=== PATIENT | female | born 1945 | race Caucasian/White ===

== ENCOUNTER 2017-11-18 11:18 | Outpatient (CLI) | payer MEDICARE ==
--- NOTE | 2017-11-18 12:16 | RAD ---
PA AND LATERAL CHEST: HISTORY: Dyspnea. FINDINGS: The lung wagoner appear clear. No infiltrate. The heart and mediastinum are unremarkable. IMPRESSION: No evidence of acute process. POS: [facility]
== END 2017-11-18 11:19 | disposition home or self-care (01) ==
LOC: BICRAD 11:18
PROVIDERS: ATTEND Internal Medicine
DX: R06.00 Dyspnea, unspecified (principal); R53.83 Other fatigue
CPT/HCPCS: 71046

== ENCOUNTER 2017-11-18 12:09 | Outpatient (CLI) | payer MEDICARE | END 2017-11-18 12:10 | disposition home or self-care (01) | LOC: BICMAMMO 12:09 | PROVIDERS: ATTEND Internal Medicine | DX: Z12.31 Encounter for screening mammogram for malignant neoplasm of breast (principal); R92.1 Mammographic calcification found on diagnostic imaging of breast; Z80.3 Family history of malignant neoplasm of breast; Z85.43 Personal history of malignant neoplasm of ovary | CPT/HCPCS: 77063; 77067 ==

== ENCOUNTER 2018-11-23 09:03 | Outpatient (CLI) | payer MEDICARE ==
--- NOTE | 2018-11-23 09:42 | MMO ---
Bilateral MAMMO Bilat Screen [facility]. CLINICAL HISTORY: Patient is 73 years old and is seen for screening. The patient has the following family history of breast cancer: sister, at age 61. The patient has a history of Skin cancer at age 70. VIEWS: The views performed were: bilateral craniocaudal with tomosynthesis and bilateral mediolateral oblique with tomosynthesis. FILMS COMPARED: The present examination has been compared to prior imaging studies performed at [facility] on 08/01/2014, 08/13/2015, 09/16/2016 and 11/18/2017. This study has been interpreted with the assistance of computer-aided detection. MAMMOGRAM FINDINGS: There are scattered fibroglandular densities. There are stable benign appearing calcifications seen in both breasts. There are no suspicious masses, suspicious calcifications, or new areas of architectural distortion. IMPRESSION: THERE IS NO MAMMOGRAPHIC EVIDENCE OF MALIGNANCY. A ROUTINE FOLLOW-UP MAMMOGRAM IN 1 YEAR IS RECOMMENDED. THE RESULTS OF THIS EXAM WERE SENT TO THE PATIENT. ACR BI-RADS Category 2 - Benign finding MAMMOGRAPHY NOTE: 1. A negative mammogram report should not delay a biopsy if a dominant of clinically suspicious mass is present. 2. Approximately 10% to 15% of breast cancers are not detected by mammography. 3. Adenosis and dense breasts may obscure an underlying neoplasm. Reported by: REJI POPE MD Electonically Signed: [id number]
== END 2018-11-23 09:04 | disposition home or self-care (01) ==
LOC: BICMAMMO 09:03
PROVIDERS: ATTEND Internal Medicine
DX: Z12.31 Encounter for screening mammogram for malignant neoplasm of breast (principal); Z85.828 Personal history of other malignant neoplasm of skin; Z80.3 Family history of malignant neoplasm of breast
CPT/HCPCS: 77063; 77067

== ENCOUNTER 2019-12-28 10:11 | Outpatient (CLI) | payer MEDICARE ==
--- NOTE | 2019-12-28 10:43 | MMO ---
Bilateral MAMMO Bilat Screen [facility]. CLINICAL HISTORY: Patient is 74 years old and is seen for screening. The patient has the following family history of breast cancer: sister, at age 61. The patient has a history of Skin cancer at age 70. VIEWS: The views performed were: bilateral craniocaudal with tomosynthesis and bilateral mediolateral oblique with tomosynthesis. FILMS COMPARED: The present examination has been compared to prior imaging studies performed at [facility] on 08/13/2015, 09/16/2016, 11/18/2017 and 11/23/2018. This study has been interpreted with the assistance of computer-aided detection. MAMMOGRAM FINDINGS: There are scattered fibroglandular densities. There are benign appearing calcifications seen in both breasts. Nodularity is stable. There are no suspicious masses, suspicious calcifications, or new areas of architectural distortion. IMPRESSION: THERE IS NO MAMMOGRAPHIC EVIDENCE OF MALIGNANCY. A ROUTINE FOLLOW-UP MAMMOGRAM IN 1 YEAR IS RECOMMENDED. THE RESULTS OF THIS EXAM WERE SENT TO THE PATIENT. ACR BI-RADS Category 2 - Benign finding MAMMOGRAPHY NOTE: 1. A negative mammogram report should not delay a biopsy if a dominant of clinically suspicious mass is present. 2. Approximately 10% to 15% of breast cancers are not detected by mammography. 3. Adenosis and dense breasts may obscure an underlying neoplasm. Reported by: HERACLIO HEARD MD Electonically Signed: [id number]
== END 2019-12-28 10:12 | disposition home or self-care (01) ==
LOC: BICMAMMO 10:11
PROVIDERS: ATTEND Internal Medicine
DX: Z12.31 Encounter for screening mammogram for malignant neoplasm of breast (principal); Z80.3 Family history of malignant neoplasm of breast; Z85.828 Personal history of other malignant neoplasm of skin
CPT/HCPCS: 77063; 77067

== ENCOUNTER 2021-12-25 08:56 | Outpatient (CLI) | payer MEDICARE | END 2021-12-25 08:57 | disposition home or self-care (01) | LOC: BICMAMMO 08:56 | PROVIDERS: ATTEND Internal Medicine | DX: Z12.31 Encounter for screening mammogram for malignant neoplasm of breast (principal); N63.24 Unspecified lump in the left breast, lower inner quadrant; Z85.828 Personal history of other malignant neoplasm of skin; Z80.3 Family history of malignant neoplasm of breast | CPT/HCPCS: 77063; 77067 ==

== ENCOUNTER 2022-01-08 14:09 | Outpatient (CLI) | payer MEDICARE | END 2022-01-08 14:10 | disposition home or self-care (01) | LOC: BICULT 14:09 | PROVIDERS: ATTEND Internal Medicine | DX: Z12.31 Encounter for screening mammogram for malignant neoplasm of breast (principal); R92.8 Other abnormal and inconclusive findings on diagnostic imaging of breast ==

== ENCOUNTER → 2022-01-12 | Day surgery (SDC) | payer MEDICARE | END | disposition home or self-care (01) | LOC: BICULT 12:34 | PROVIDERS: ATTEND Internal Medicine | PROC: 0H9U3ZX Drainage of Left Breast, Percutaneous Approach, Diagnostic (ICD-10-PCS; principal; 2022-01-12) | DX: C50.312 Malignant neoplasm of lower-inner quadrant of left female breast (principal); Z17.0 Estrogen receptor positive status [ER+] | CPT/HCPCS: 19083; 88305; 88342; 88360 ==

== ENCOUNTER 2022-02-12 13:53 | Outpatient (CLI) | payer MEDICARE ==
[2022-02-12 15:36] LABS: #Eosinphils 0.2 10x3/uL (0.0-0.5); #Monocytes 0.9 10x3/uL (0.0-1.1); #Neutrophils 4.8 10x3/uL (1.5-8.4); %Basophils 0.2 % (0.0-2.0); %Lymphocytes 34.7 % (18.0-47.0); %Monocytes 9.6 % (0.0-10.0); %Neutrophils 53.2 % (40.0-75.0); Hemoglobin 13.2 g/dL (12.0-15.5); Mean Corpuscular HGB CONC 33.7 g/dL (32.0-36.0); Mean Corpuscular Hemoglobin 31.1 pg (27.0-33.0); Mean Corpuscular Volume 92.2 fl (81.6-98.3); Platelet Count 211 10x3/uL (150-450); RBC Distribution Width 13.5 % (11.5-14.5); Red Blood Cell (RBC) Count 4.25 10x6/uL (3.90-5.03)
[2022-02-12 16:00] LABS: Anion Gap 16 mmol/L (10-20); BUN (Urea Nitrogen) 23 mg/dL (9.8-20.1); Calc. Creatinine Clearance 0 mL/min (70-130); Calcium 9.8 mg/dL (7.8-10.44); Carbon Dioxide 26 mmol/L (23-31); Chloride 100 mmol/L (98-107); Estimated GFR 76; Glucose 97 mg/dL (83-110); Potassium 4.4 mmol/L (3.5-5.1); Sodium 138 mmol/L (136-145)
== END 2022-02-12 13:54 | disposition home or self-care (01) ==
LOC: LABBT 13:53
PROVIDERS: ATTEND Specialist
DX: Z01.818 Encounter for other preprocedural examination (principal); C50.912 Malignant neoplasm of unspecified site of left female breast
CPT/HCPCS: 80048; 85025; 93005; 93010

== ENCOUNTER 2022-02-16 07:52 | Day surgery (SDC) | payer MEDICARE ==
[2022-02-15 13:10] VITALS: BMI 38.6
[2022-02-16] MEDS ORDERED: Acetaminophen 500 MG TAB ONE (09:50)
[2022-02-16] MEDS ORDERED: Ketorolac Tromethamine 30 MG/ML VIAL ONE (09:51)
[2022-02-16] MEDS ORDERED: Fentanyl 250 MCG/5 ML VIAL ONE (11:37)
[2022-02-16] MEDS ORDERED: Isosulfan Blue 50 MG/5 ML VIAL ONE (11:45)
[2022-02-16] MEDS ORDERED: Lidocaine 2% PF 5 ML VIAL ONE (11:45)
[2022-02-16] MEDS ORDERED: Bupivacaine/Epinephrine 0.25% 30 ML VIAL ONE (11:45)
[2022-02-16] MEDS ORDERED: Sodium Chloride 0.9% 100 ML ONE (11:54)
[2022-02-16] MEDS ORDERED: CEFAZOLIN 2 GM VIAL ONE (11:54)
[2022-02-16] MEDS ORDERED: PROPOFOL 200 MG/20 ML VIAL ONE (12:11)
[2022-02-16] MEDS ORDERED: PHENYLEPHRINE-NS 100 MCG/ML 10 ML SYRINGE ONE (12:11)
[2022-02-16] MEDS ORDERED: ePHEDrine 50 MG/ML VIAL ONE (12:11)
[2022-02-16] MEDS ORDERED: Ondansetron PF 4 MG/2 ML Vial ONE (12:11)
[2022-02-16] MEDS ORDERED: Glycopyrrolate 0.2 MG/ML 5 ML SYRINGE ONE (12:11)
[2022-02-16] MEDS ORDERED: Lidocaine 1% PF 5 ML VIAL ONE (12:11)
== END 2022-02-16 16:33 | disposition home or self-care (01) ==
LOC: NM 07:52
PROVIDERS: ATTEND Specialist
PROC: 0HBU0ZZ Excision of Left Breast, Open Approach (ICD-10-PCS; principal; 2022-02-16)
PROC: 07B60ZX Excision of Left Axillary Lymphatic, Open Approach, Diagnostic (ICD-10-PCS; 2022-02-16)
DX: C50.312 Malignant neoplasm of lower-inner quadrant of left female breast (principal); N60.82 Other benign mammary dysplasias of left breast; N60.12 Diffuse cystic mastopathy of left breast; D24.2 Benign neoplasm of left breast; I10 Essential (primary) hypertension; L40.9 Psoriasis, unspecified; E66.9 Obesity, unspecified; Z17.0 Estrogen receptor positive status [ER+]; Z68.38 Body mass index [BMI] 38.0-38.9, adult; Z79.899 Other long term (current) drug therapy; Z88.0 Allergy status to penicillin; Z88.2 Allergy status to sulfonamides; Z91.018 Allergy to other foods
CPT/HCPCS: 19301; 38525; 38900; 76098; 78195; A9541; C1713; Q9968; 88307; 88342; J1885; J2001; J2405; J2704; J3010; J3490

== ENCOUNTER 2022-03-05 09:33 | Outpatient (CLI) | payer MEDICARE | END 2022-03-05 09:34 | disposition home or self-care (01) | LOC: BICMAMMO 09:33 | PROVIDERS: ATTEND Internal Medicine | DX: Z13.820 Encounter for screening for osteoporosis (principal); C50.412 Malignant neoplasm of upper-outer quadrant of left female breast; M85.852 Other specified disorders of bone density and structure, left thigh; M85.851 Other specified disorders of bone density and structure, right thigh; T38.6X5A Adverse effect of antigonadotrophins, antiestrogens, antiandrogens, not elsewhere classified, initial encounter | CPT/HCPCS: 77080 ==

== ENCOUNTER 2023-03-22 09:21 | Outpatient (CLI) | payer MEDICARE | END 2023-03-22 09:22 | disposition home or self-care (01) | LOC: BICMAMMO 09:21 | PROVIDERS: ATTEND Internal Medicine | DX: Z13.820 Encounter for screening for osteoporosis (principal); C50.412 Malignant neoplasm of upper-outer quadrant of left female breast; M85.851 Other specified disorders of bone density and structure, right thigh; M85.852 Other specified disorders of bone density and structure, left thigh | CPT/HCPCS: 77080 ==

== ENCOUNTER 2024-03-05 08:45 | Outpatient (CLI) | payer MEDICARE | END 2024-03-05 08:46 | disposition home or self-care (01) | LOC: BICMAMMO 08:45 | PROVIDERS: ATTEND Specialist | DX: Z08 Encounter for follow-up examination after completed treatment for malignant neoplasm (principal); Z85.3 Personal history of malignant neoplasm of breast | CPT/HCPCS: 77066; G0279 ==

== ENCOUNTER 2024-03-23 09:49 | Outpatient (CLI) | payer MEDICARE | END 2024-03-23 09:50 | disposition home or self-care (01) | LOC: BICMAMMO 09:49 | PROVIDERS: ATTEND Internal Medicine | DX: M85.851 Other specified disorders of bone density and structure, right thigh (principal); M81.0 Age-related osteoporosis without current pathological fracture | CPT/HCPCS: 77080 ==